=== PATIENT | male | born 1955 | race Caucasian/White ===

== ENCOUNTER 2024-11-21 13:34 | Outpatient (CLI) | payer MEDICARE, SELFPAY ==
--- NOTE | ~2024-11-21 | PE_ITS ---
EXAMINATION: PET_PETPSMAST_PT DATE: 11/21/2024 15:53 INDICATION: Cystic cancer TECHNIQUE: 4.523 mCi of Illucix [id number]) was administered i.v. Low dose computed christel graphy (CT) images were acquired from the base of the brain to the base of the brain to the proximal thighs for attenuation correction and anatomic localization. Positron emission tomography (PET) image s were acquired in the same distribution beginning 86 minutes after injection. Images including fused PET/CT images were reconstructed in axial, coronal, and sagittal planes. Automated exposure control technique was employed. The dose-length product was 737.44mGy-cm. COMPARISON: None FINDINGS: Head/neck: Typical pattern of symmetric physiologic increased activity in the lacrimal, parotid and submandibula r glands as well as along the mucosa of the nasal and oral cavities, pharynx and hypopharynx. No path ologically enlarged cervical lymphadenopathy or suspicious foci of increased uptake in the visualized head or neck. Chest: Mild emphysema. Calcified right lower lobe nodule along with calcified right hilar lymph nodes consis tent with old granulomatous disease. No suspicious pulmonary nodules or pleural effusion. Heart size is normal. Atherosclerotic coronary artery calcific lesions. No pericardial effusion. Thoracic aorta is normal in caliber. No pathologically enlarged or PSMA avid thoracic lymphadenopathy. Abdomen/pelvis/proximal thighs: Physiologic renal accumulation and excretion of activity in the kidneys, bladder and along portions o f ureters. Photopenic defects associated with a couple bilateral renal cysts the largest on the right measuring 1.8 cm. Bilateral nonobstructing nephrolithiasis with 2 mm stone at a lower pole calyx of the right kidney and with 2 stones in the mid left kidney measuring up to 5 mm. Prostatomegaly measur ing 5.3 x 3.8 cm small focus of asymmetric minimal increased activity with maximal SUV of 3.7 at the right posterior aspect of the prostate consistent with the site of reported primary prostate cancer. Normal degree and slightly heterogenous pattern of increased uptake throughout the liver and spleen w ithout radiologic correlate or dominant PSMA avid lesion. There are a few scattered splenic calcific lesions also consistent with old granulomatous disease. The gallbladder, pancreas and bilateral adren al glands are normal. Moderate uptake scattered throughout the bowels with typical duodenal and proxi mal jejunal predominance and without radiologic correlate, also likely physiologic. There is mild col onic diverticulosis with a sigmoid predominance and without adjacent inflammatory change to suggest d iverticulitis. Normal appendix. No other abnormal foci of increased uptake or pathologically enlarged lymphadenopathy in the abdomen, pelvis or proximal thighs. Musculoskeletal: L5 spondylolysis with bilateral pars intra-articular is defects and 11 mm anterolisthesis L4 on L5 an d severe disc height loss with severe degenerative endplate changes. Reverse left total shoulder arth roplasty. Right rotator cuff arthropathy with moderate glenohumeral osteoarthritis. No suspicious lyt ic, blastic or abnormally PSMA avid bone lesions. IMPRESSION: 1. Small focus of mild asymmetric uptake at the right posterior aspect of the enlarged prostate consi stent with reported primary prostate cancer. No evident metastatic disease. 2. Bilateral nonobstructing nephrolithiasis. 3. Mild emphysema. 4. 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 Reviewed, dictated and finalized at location A. IMPRESSION: 1. Small focus of mild asymmetric uptake at the right posterior aspect of the e nlarged prostate consistent with reported primary prostate cancer. No evident m etastatic disease. 2. Bilateral nonobstructing nephrolithiasis. 3. Mild emphysema. 4. 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
--- OUTSIDE RECORDS SUMMARY | 2024-11-21 14:14 | XMS_ITS | Clinical Summary ---
Author Organization [facility] Address [address] [place] [phone] Phone Care Team Providers Care Cuffer Name Role Phone Unavailable Primary Care Provider Unavailabl e Allergies No known active allergies Medications buPROPion HCL (WELLBUTRIN XL) 150 mg Extended Release 24 hour tablet Take 1 Tablet by mouth daily. 07/06/2023 Active atorvastatin (LIPITOR) 20 mg tablet Take 1 Tablet by mouth daily. 04/07/2023 Active amLODIPine (NORVASC) 2.5 mg tablet Take 2.5 mg by mouth daily. 07/10/2023 Active fenofibrate (LOFIBRA) 160 mg Tablet Take 1 Tablet by mouth daily. 01/09/2023 Active sertraline (ZOLOFT) 100 mg tablet Take 100 mg by mouth daily. 01/30/2023 Active Active Problems Problem Noted Date Diagnosed Date Amputation of finger tip, initial encounter 06/14 Crushing injury of left middle finger 07/11/2023 Crushing injury of left ring finger 07/11/2023 Immunizations Immunization Administration Dates Next Due (ADACEL/BOOSTRIX)(10 YR UP) TDAP VACCINE, 0.5ML, IM 09/13/2019 INFLUENZA VACCINE HIGH DOSE QUADRIVALENT 65 YR UP PF IM 04/13/2021,03/03/2020,04/17/2019 Influenza, Unspecified Formulation 05/31/2022,,04/15/2014 Pneumococcal conjugate, unsp ecified formulation 05/24/2014 Zoster Vaccine Live SQ 04/15/2014 Social History Tobacco Use Types Packs/Day Years Used Date Smoking Tobacco: Never Passive Smoke Exposure: Never Smokeless Tobacco: Never Tobacco Cessation:Counseling Given: Not Answered Feeling Safe Answer Date Recorded Are you in a relationship wi th someone who hurts you emotionally and/or physically? 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 Gender Identity Not on file Sexual Orientation Not on file Last Filed Vital Signs Vital Sign Reading Time Taken Comments Blood Pressure 133/65 07/11/2023 10:15 PM TIRE SETTER Pulse 80 07/11/2023 10:15 PM TIRE SETTER Temperature 36.3 C (97.3 F) 07/11/2023 9:11 PM TIRE SETTER Respiratory Rate 16 07/11/2023 9:11 PM TIRE SETTER Oxygen Saturation 94% 07/11/2023 10:15 PM TIRE SETTER Inhaled Oxygen Concentration - - Weight 66.2 kg (146 lb) 07/11/2023 9:11 PM TIRE SETTER Height 165.1 cm (5' 5) 07/11/2023 9:11 PM TIRE SETTER Body Mass Index 24.3 07/11/2023 9:11 PM TIRE SETTER Plan of Treatment Health Maintenance Due Date Last Done Comments FIT-DNA Q 3 years 1999 FIT/FOBT Q 1 year 1999 Flex Sig/CT Colonography Q 5 years 1999 COVID-19 Vaccine (2023-2 5 season) 2024 05/01/2021, 09/05/2020, 08/08/2020 COLORECTAL SCREENING 05/01/2025 05/01/2015 Colorectal Cancer Screening 05/01/2025 RSV VACCINE (60+ or ) (1 - 1-dose 75+ series) 2029 DTAP/TDAP/TD VACCINES (2 - T d or Tdap) 09/12/2029 09/13/2019 INFLUENZA VACCINE Completed 04/08/2024, , 03/03/2020, Additional history exists PNEUMOCOCCAL VACCINE 50+ YEARS Completed 04/26/2024 , 05/24/2014 ZOSTER VACCINE Completed 05/24/2024, 02/10, 04/15/2014 Insurance MEDICARE PART A AND B
--- OUTSIDE RECORDS SUMMARY | 2024-11-21 14:14 | XMS_ITS | Clinical Summary ---
Author Organization [facility] Address [address] [place] [address] Care Team Providers Care Salon Designer Name Role Phone Unavailable Primary Care Provider Unavailabl e Source Comments [facility],non-owned Affiliates and Associated Physician Practices is amultiple site organization consisting of ambulatory clinics and hospital sitesin [place], [place], [place] and [place]. This disclosure is being madepursuant to the Care Everywhere program and may not contain all information available regarding this patient. 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 Gender Identity Not on file Sexual Orientation Not on file Last Filed Vital Signs Vital Sign Reading Time Taken Comments Blood Pressure 161/88 01/21/2016 4:00 PM CDT Pulse 63 01/21/2016 4:00 PM CDT Temperature 36.6 C (97.9 F) 01/21/2016 4:00 PM CDT Respiratory Rate 16 01/21/2016 3:29 PM CDT Oxygen Saturation 99% 01/21/2016 4:00 PM CDT Inhaled Oxygen Concentration - - Weight 68 kg (150 lb) 01/21/2016 12:07 PM CDT Height 167.6 cm (5' 6) 01/21/2016 12:07 PM CDT Body Mass Index 24.21 01/21/2016 12:07 PM CDT Plan of Treatment Health Maintenance Due Date Last Done Comments COLOGUARD (AGES 45-75) - COL ON CA SCREENING 1954 COLON MONITORING 1954 COLONOSCOPY - COLON CA SCREENING 1954 CT COLONOGRAPHY - COLON CA SCREENING 1954 Colorectal Cancer Screening 1954 FIT - COLON CA SCREENING 1954 FLEX SIG - COLON CA SCREENING 1954 LIPID TESTING 1954 HEPATITIS C SCREENING 02/18/1972 DTAP/TDAP/TD VACCINES (1 - Tdap) 1973 PNEUMOCOCCAL VACCINE 50+ (1 of 1 - PCV) 02/23/2004 ZOSTER VACCINE (1 of 2) 02/23/2004 COVID-19 VACCINE (1 - 2023-2 5 season) 2024 DEPRESSION SCREENING 06/12/2024 INFLUENZA VACCINE (Season Ended) 2025 Respiratory Syncytial Virus (RSV) Vaccine Pt: or over 60 yrs (1 - 1-dose 75+ series) 2029 HEPATITIS B VACCINE Aged Out No longe r eligible based on patient's age to complete this topic HIB VACCINE Aged Out No longer eligi ble based on patient's age to complete this topic HPV VACCINE Aged Out No longer eligi ble based on patient's age to complete this topic MENINGOCOCCAL (Group B) VACC INE SHARED DECISION-MAKING Aged Out No longer eligibl e based on patient's age to complete this topic MENINGOCOCCAL GROUPS A/C/Y/W VACCINE Aged Out No longer eligible b ased on patient's age to complete this topic
== END 2024-11-21 13:35 | disposition home or self-care (01) ==
PROVIDERS: PCP Family Medicine; Visit Provider Urology
DX: C61 Malignant neoplasm of prostate (principal); J43.9 Emphysema, unspecified; N20.0 Calculus of kidney; M47.896 Other spondylosis, lumbar region
CPT/HCPCS: 78815; A9596